=== PATIENT | male | born 1985 | race African-American/Black ===

== ENCOUNTER 2022-12-30 12:06 | Emergency (ER) | payer BC, OTHER ==
[2022-12-30] MEDS ORDERED: Ondansetron ODT 4 MG TAB ONE (13:05)
[2022-12-30] MEDS ORDERED: Ketorolac Tromethamine 30 MG/ML VIAL ONE (13:06)
[2022-12-30 13:24] LABS: ALT (SGPT) 27 U/L (8-55); AST (SGOT) 26 U/L (5-34); Albumin 4.3 g/dL (3.5-5.0); Alkaline Phosphatase 52 U/L (40-110); Anion Gap 13 mmol/L (10-20); BUN (Urea Nitrogen) 9 mg/dL (8.9-20.6); Bilirubin, Total 0.5 mg/dL (0.2-1.2); Calc. Creatinine Clearance 0 mL/min (70-130); Calcium 9.8 mg/dL (7.8-10.44); Carbon Dioxide 23 mmol/L (22-29); Chloride 108 mmol/L (98-107); Estimated GFR 92; Globulin 3.3 g/dL (2.4-3.5); Glucose 89 mg/dL (70-105); Lipase 29 U/L (8-78); Potassium 4.2 mmol/L (3.5-5.1); Protein, Total 7.6 g/dL (6.0-8.3); Sodium 140 mmol/L (136-145)
[2022-12-30 13:25] LABS: Hemoglobin 13.7 g/dL (13.5-17.5); Mean Corpuscular HGB CONC 32.9 g/dL (32.0-36.0); Mean Corpuscular Hemoglobin 26.9 pg (27.0-33.0); Mean Corpuscular Volume 81.6 fl (81.2-95.1); Mean Platelet Volume 8.8 fl (7.4-10.4); Platelet Count 314 10x3/uL (150-450); White Blood Cell (WBC) Count 9.7 10x3/uL (3.5-10.5)
[2022-12-30 13:26] LABS: MDiff Complete? YES
[2022-12-30 13:38] LABS: Eosinophils 1 % (0-10); Lymphocytes 58 % (21-51); Monocytes 10 % (0-10); Neutrophil 24 % (42-75); Reactive Lymphocytes 7 % (0-10)
[2022-12-30 13:39] LABS: Platelet Morphology Comment Appears Adequate; RBC Morphology Normal
== END 2022-12-30 14:20 | disposition home or self-care (01) ==
LOC: CSHERS 12:06
DX: R10.13 Epigastric pain (principal); R11.2 Nausea with vomiting, unspecified; F17.210 Nicotine dependence, cigarettes, uncomplicated
CPT/HCPCS: 80053; 83690; 85025; 96372; 99284; J1885; Q0162